=== PATIENT | female | born 1975 | race Caucasian/White ===

== ENCOUNTER 2022-01-12 12:26 | Emergency (ER) | payer OTHER, BC ==
[2022-01-12] MEDS: Acetaminophen 500 MG Tab PO ONE ×2 (12:46→14:17)
[2022-01-12] MEDS ORDERED: traMADol 50 MG Tab PO ONE (13:00)
[2022-01-12] MEDS ORDERED: Diphtheria,Pertussis(Acell),Tetanus Vaccine 0.5 ML Syringe IM ONE (13:31)
== END 2022-01-12 13:20 | disposition home or self-care (01) ==
LOC: LL.ED 12:26
DX: S62.665A Nondisplaced fracture of distal phalanx of left ring finger, initial encounter for closed fracture (principal); S61.217A Laceration without foreign body of left little finger without damage to nail, initial encounter; S67.197A Crushing injury of left little finger, initial encounter; I10 Essential (primary) hypertension; J44.9 Chronic obstructive pulmonary disease, unspecified; Z87.891 Personal history of nicotine dependence; Z79.899 Other long term (current) drug therapy; W23.1XXA Caught, crushed, jammed, or pinched between stationary objects, initial encounter
CPT/HCPCS: 12001; 73140-LT; 90471; 90715; 99283; 99283-25; A9270-GY

== ENCOUNTER 2022-01-12 18:25 | Emergency (ER) | payer OTHER, BC ==
[2022-01-12] MEDS: Lidocaine 1% 5 ML VIAL INJECT ONE (19:26)
[2022-01-12] MEDS: Bupivacaine 0.25% 10 ML SDV INJECT ONE (19:26)
[2022-01-12] MEDS: Bacitracin/Neomycin/Polymyxin B Oint 0.9 GM U/D Packet TOP ONE (19:26)
== END 2022-01-12 19:25 | disposition home or self-care (01) ==
LOC: LL.ED 18:25 → SUPCPDRO 18:25 → LL.ED 19:25
DX: S67.195A Crushing injury of left ring finger, initial encounter (principal); S61.215A Laceration without foreign body of left ring finger without damage to nail, initial encounter; I10 Essential (primary) hypertension; J44.9 Chronic obstructive pulmonary disease, unspecified; Z79.899 Other long term (current) drug therapy; W23.1XXA Caught, crushed, jammed, or pinched between stationary objects, initial encounter; Y99.0 Civilian activity done for income or pay
CPT/HCPCS: 12001; 99282; 99283; J3490